=== PATIENT | female | born 1965 | race Caucasian/White ===

== ENCOUNTER 2022-04-21 12:04 | Day surgery (SDC) | payer OTHER ==
[~2022-04-21] VITALS: Ht 182.9 cm; Wt 144.7 kg
[~2022-04-21 12:04] MED LIST: ARIP2TAB27 PO; BIOT300T7 PO; CHOL100018 PO; DULO-114 PO; FERR325T27 PO; FLUO10CA24 PO; FOLI-130 PO; FURO40 PO; GABA-1181 PO; LACT10SO10 PO; LANS30CA56 PO; MELO-381 PO; METO25 PO; MIDO5TAB29 PO; MULT-248 PO; OMEP20 PO; PARO-38 PO; RAME8TAB8 PO; SPIR50TA27 PO; TRAZ-252 PO
[2022-04-21] MEDS ORDERED: LIDOCAINE/PF 2% 5 ML SYRINGE IVP ONE (12:05)
[2022-04-21] MEDS ORDERED: PROPOFOL 1% 20 ML VIAL IVP ONE (12:05)
[2022-04-21 12:28] LABS: COVID AG,FIA SOURCE NASAL SWAB
[2022-04-21] MEDS ORDERED: SODIUM CHLORIDE 0.9% 1,000 ML IV ONE (14:00)
[2022-04-21] MEDS ORDERED: OMEP20 PO (15:24)
== END 2022-04-21 17:10 | disposition home or self-care (01) ==
LOC: SURGERY 12:04
PROVIDERS: ATTEND Internal Medicine Gastroenterology
DX: I85.00 Esophageal varices without bleeding (principal); K70.30 Alcoholic cirrhosis of liver without ascites; I10 Essential (primary) hypertension; Z79.899 Other long term (current) drug therapy; Z98.890 Other specified postprocedural states; Z88.0 Allergy status to penicillin; Z90.49 Acquired absence of other specified parts of digestive tract; Z72.89 Other problems related to lifestyle; Z98.84 Bariatric surgery status; Z20.822 Contact with and (suspected) exposure to COVID-19; Z87.891 Personal history of nicotine dependence
CPT/HCPCS: 43244; 87426; C9803; J2704; J3490

== ENCOUNTER 2022-11-08 09:18 | Day surgery (SDC) | payer OTHER ==
[~2022-11-08] VITALS: Ht 182.9 cm; Wt 151.4 kg
[~2022-11-08 09:18] MED LIST changes: -ARIP2TAB27 PO; -BIOT300T7 PO; -CHOL100018 PO; -LACT10SO10 PO; +LANS-78 PO; -LANS30CA56 PO; -MIDO5TAB29 PO; -MULT-248 PO; +SODIUM CHLORIDE 0.9% 1,000 ML IV ONE
[2022-11-08] MEDS ORDERED: LIDOCAINE/PF 2% 5 ML VIAL IM ONE (09:19)
== END 2022-11-08 12:45 | disposition home or self-care (01) ==
LOC: SURGERY 09:18
PROVIDERS: ATTEND Internal Medicine Gastroenterology
DX: I85.00 Esophageal varices without bleeding (principal); Z90.49 Acquired absence of other specified parts of digestive tract; Z98.890 Other specified postprocedural states; K74.60 Unspecified cirrhosis of liver; Z88.0 Allergy status to penicillin; E66.9 Obesity, unspecified; Z79.899 Other long term (current) drug therapy
CPT/HCPCS: 43235; J3490